=== PATIENT | male | born 1955 | race Caucasian/White ===

== ENCOUNTER 2021-02-04 13:05 | Emergency (ER) | payer MEDICARE, SELFPAY ==
[2021-02-04] VITALS (7 sets, daily range): BP systolic 96–108; BP diastolic 61–72; PULSE 53–61; RESP 15–17; TEMP 36.4–36.6; O2SAT 91–97; BMI 24.4
--- NOTE | 2021-02-04 14:18 | RAD_ITS ---
STUDY: X-RAY CHEST REASON FOR EXAM: Male, 65 years old. cough, + COVID . Cough and body aches. TECHNIQUE: Single AP portable view of the chest. COMPARISON: None. FINDINGS: EKG electrodes are seen. Patchy bilateral pulmonary infiltrates worse in the right upper lobe with a preferential peripheral distribution in keeping with Covid pneumonitis. There is no demonstrated pleural abnormality. Normal size heart. Normal mediastinum and rosana. Normal visualized pulmonary arteries. Normal visualized aortic arch and descending thoracic aorta. There are diffuse degenerative changes of the visualized thoracic spine. Normal visualized ribs, clavicles, and shoulders. There is no demonstrated abnormality of the visualized soft tissue structures of the upper abdomen. RAD/Chest 1 View (Portable) IMPRESSION: Bilateral pulmonary infiltrates worse in the right side with a peripheral distribution suggestive of Covid pneumonitis. Electronically Signed: Dexter Mayer MD at 15:25 EDT , Service support ,
--- NOTE | 2021-02-04 14:27 | EDS_ITS ---
HPI History of Present Illness Chief Complaint: General Illness Informant: patient Narrative Narrative: Patient is a 65-year-old male with history of hypertension, hyperlipidemia and hypothyroid, diagnosed with Covid and received a monoclonal antibody infusion on Wednesday, 2 days ago, at [facility]. He is presenting with continued body aches and not feeling well. He has had diarrhea but no blood in it. He has had nausea and vomiting but none today. Does continue to have a cough but denies feeling short of breath. He has not had any fever. Not take anything at home for his symptoms besides his regularly prescribed medications. No oxygen at home. Notes his is also having similar symptoms. [facility] Medical History (Updated 02/04/21 @ 16:[address] Jyotsna Figueroa DO) Aneurysm Former smoker Hypertension Myocardial infarct Home Medications dexamethasone [Decadron] 6 mg PO DAILY #6 tab 02/04/21 [Rx Last Taken Unknown] Allergy/AdvReac Type Severity Reaction Status Date / Time No Known Allergies Allergy Verified 02/04/21 13:09 Social History Smoking Status: Former smoker ROS ROS ED Constitutional Constitutional ED: Reports chills; Denies fever(s) Eyes Eyes: Denies change in vision ENT ENT ED: Reports other Details: Nasal congestion ; Denies ear pain or rhinorrhea Cardiovascular Cardiovascular: Denies chest pain or palpitations Respiratory/Chest Respiratory/Chest: Reports cough; Denies dyspnea or dyspnea on exertion Gastrointestinal Gastrointestinal: Reports diarrhea, nausea and vomiting; Denies abdominal pain Genitourinary Genitourinary ED: Denies dysuria or hematuria Musculoskeletal Musculoskeletal: Reports myalgias; Denies neck pain Integumentary Denies rash Neurologic Neurologic: Reports headache(s); Denies weakness Psychiatric Psychiatric: Denies anxiety or depression EXAM Physical Exam Const Vital Signs: 02/04/21 13:05 02/04/21 14:40 02/04/21 16:00 Temperature 97.5 F L 97.6 F L 97.9 F Temperature Source Temporal Oral Temporal Pulse Rate 60 61 61 Respiratory Rate 16 16 15 Respiratory Pattern Normal Blood Pressure 96/67 104/72 108/72 Blood Pressure Mean 76 82 84 Pulse Ox 94 96 97 Oxygen Delivery Method Room Air Room Air Nasal Cannula Oxygen Flow Rate (L/min) 2 02/04/21 16:58 02/04/21 17:20 Temperature Temperature Source Pulse Rate 60 Respiratory Rate 17 Respiratory Pattern Blood Pressure 107/61 Blood Pressure Mean Pulse Ox 96 96 Oxygen Delivery Method Nasal Cannula Oxygen Flow Rate (L/min) 2 Positive well nourished and well developed General Appearance ED: well developed HEENT Reports moist mucous membranes Negative for tenderness Eyes Negative for PERRL or EOMs intact bilaterally Neck no lymphadenopathy, No supple and no JVD Chest Wall inspection of chest normal Resp normal respiratory effort Effort and Inspection: Negative for retractions Auscultation: rhonchi throughout and diminished lung sounds Cardio regular rate, regular rhythm and no murmurs GI normal to inspection, nondistended, normoactive bowel sounds, non-tender, non- distended, hepatosplenomegaly and no masses Inspection: abdominal distention Auscultation: normoactive bowel sounds, hyperactive bowel sounds and hypoactive bowel sounds Palpation: soft, tender, guarding, splenomegaly, mass and rebound tenderness present Rectal Exam: normal sphincter tone, prostate normal, heme negative stool, heme positive stool, tenderness and other Back/Spine no CVA tenderness Extremity normal to inspection General Extremety ED: Negative for edema or tenderness General Extremity: Negative for edema Neuro oriented x3 Sensorium / Orientation: alert Motor Exam: Negative for general weakness Psych mental status grossly normal Skin no rashes or lesions noted and no wounds MDM MDM MDM Narrative Medical decision making narrative: Patient evaluated for continued cough and increased fatigue associated with Covid diagnosis. Patient is hypoxic with a mbulation on 85% and requiring supplemental oxygen. Chest x-ray is consistent with Covid pneumonia and he does not have a leukocytosis. He is given 500 cc bolus as he does have a mild hyponatremia. He is given Toradol and does have improvement of his symptoms. Patient is a candidate for outpatient home oxygen. This is set up. Patient is comfortable with this. He is started on Decadron given first dose in the emergency room. Patient counseled return precautions. Counseled on use of a pulse oximeter. Of respiratory counseled patient on how to use home oxygen. Patient is agreeable with this plan of care. Lab Data Attestation: I reviewed the patient's lab results. Labs: Laboratory Results - last 24 hr 02/04/21 02/04/21 14:38 14:38 WBC 5.3 RBC 5.11 Hgb 15.2 Hct 44.1 MCV 86.3 MCH 29.7 MCHC 34.5 RDW Std Deviation 41.5 RDW Coeff of Rey 13.1 Plt Count 139 L MPV 10.2 Immature Gran % (Auto) 0.600 Neut % (Auto) 65.3 Lymph % (Auto) 26.3 [place] % (Auto) 7.0 Eos % (Auto) 0.6 Baso % (Auto) 0.2 Absolute Neuts (auto) 3.5 Absolute Lymphs (auto) 1.39 Nucleated RBC % 0 Sodium 130 L Potassium 3.7 Chloride 95 L Carbon Dioxide 29.0 Anion Gap 6 BUN 14 Creatinine 0.79 Estim Creat Clear Calc 105.35 Est GFR (MDRD) Af Amer 126 Est GFR (MDRD) Non-Af 104 BUN/Creatinine Ratio 17.7 Glucose 108 H Calcium 8.7 Total Bilirubin 0.90 AST 75 H ALT 47 Alkaline Phosphatase 49 Total Protein 6.6 Albumin 3.3 Globulin 3.3 Albumin/Globulin Ratio 1.0 Radiography Chest X-Ray - ED: 1 View, Read by ED Physician, Read by Radiologist and - (Multifocal infiltrate consistent with Covid pneumonitis) Diagnostic Testing: Radiology Impression Chest X-Ray 02/04/21 14:18 IMPRESSION: Bilateral pulmonary infiltrates worse in the right side with a peripheral distribution suggestive of Covid pneumonitis. Electronically Signed: eDxter Mayer MD at 15:25 EDT , Service support , Discharge Plan Triage Chief Complaint: General Illness ED Provider: Jyotsna Figueroa Dx/Rx/DC Orders Clinical Impression: Pneumonia due to COVID-19 virus, Acute respiratory failure with hypoxia Instructions: Coronavirus Disease 2019 (COVID-19): Overview Prescriptions: New dexamethasone [Decadron] 6 mg tablet 6 mg PO DAILY Qty: 6 RF: 0 Primary Care Provider: Kip Claros Referrals: Kip Claros MD [Primary Care Provider] - Activity Restrictions/Additional Instructions: Alternate Tylenol and ibuprofen for myalgias and fever. Return the emergency room if your oxygen is going below 90% despite being on home oxygen. If you require more than 4 L of oxygen please return to the emergency room. Disposition Disposition: Home, Self Care Discharge Date/Time: 02/04/21 18:00
[2021-02-04] MEDS: Ketorolac 15 MG/ML Vial IV (14:38)
[2021-02-04 14:50] LABS: Absolute Lymphocyte Count 1.39 X10^3/uL (0.83-4.51); Absolute Neutrophil Count 3.5 X10^3/uL (2.0-7.7); Basophil# 0.01 X10^3/uL; Basophil% 0.2 % (0-1); Eosinophil# 0.03 X10^3/uL; Eosinophils% 0.6 % (0-5); Hematocrit 44.1 % (40-54); Hemoglobin 15.2 g/dL (13.0-16.5); Lymphocyte # 1.39 X10^3/ul (0.83-4.51); Lymphocyte % 26.3 % (19-41); Mean Corp Hgb Conc 34.5 g/dL (32-36); Mean Corpuscular Hgb 29.7 pg (27.0-32.0); Mean Corpuscular Volume 86.3 fL (80-94); Mean Platelet Vol. 10.2 fl (6.2-12.0); Monocyte# 0.37 X10^3/uL; NRBC Flagged by Analyzer 0 % (0-5); Neutrophil # 3.45 X10^3/uL (2.7-7.7); Neutrophil % 65.3 % (47-70); Platelet Count 139 K/mm3 (150-450); RBC Distribution Width CV 13.1 % (11.6-14.6); RBC Distribution Width SD 41.5 fl (35.1-43.9); Red Blood Count 5.11 M/mm3 (4.6-6.2); White Blood Count 5.3 K/mm3 (4.4-11.0)
[2021-02-04 15:04] LABS: AST(SGOT) 75 U/L (15-37); Alanine Aminotransfer ALT/SGPT 47 U/L (16-61); Albumin, Serum 3.3 g/dL (3.2-5.0); Alkaline Phosphatase 49 U/L (45-117); Anion Gap 6 (5-15); BUN 14 mg/dL (7-18); BUN/Creat Ratio 17.7 RATIO (10-20); Calcium,Total 8.7 mg/dL (8.5-10.1); Chloride 95 mmol/L (98-107); Creatinine, Serum 0.79 mg/dL (0.70-1.30); EST Glomerular Filtration Rate 104 mL/min (>60); Est Glom Filt Rate - Afr Amer 126 mL/min (>60); Estimated Creatinine Clearance 105.35 ml/min; Globulin 3.3 g/dL (2.2-4.2); Glucose 108 mg/dL (74-106); Potassium 3.7 mmol/L (3.5-5.1); Protein, Total 6.6 g/dL (6.4-8.2); Sodium Level 130 mmol/L (136-145)
[2021-02-04] MEDS: dexAMETHasone 4 MG Tablet 6 MG PO (17:19)
--- NOTE | 2021-02-04 17:20 | CM.ED ---
SOCIAL WORK Referral Source: Dr. Figueroa Reason for Consult: COVID-19 positive requiring home O2 Patient requires home O2 for home going. Patient has COVID-19 positive test. Nursing spoke with patient and [place] [facility] [place] A&Ox3. Patient lives home with and is no longer a smoker. Patient does not have pulse ox at home. One has been provided. [place] [facility] [place]. Nurse to notify RT to review with patient. Notified Case Management for follow up. Danae Quintero, NEONATAL DOCTOR, SAMPLE MAKER
--- NOTE | 2021-02-05 12:19 | CASEMGMT ---
ARUN CEDILLO Follow-up: This RN CM phoned pt in follow-up to discharge from the ED with home O2. Pt states he is feeling better and that he has been wearing his O2 at 2l/min. Pt reports his PO to be 90% but did state it had gone down to 87% and returned to 90%. Pt states he did go down to feed and water his coon dogs and cats without wearing the O2. Encouraged pt to wear his O2 while he is walking around. Pt states he has found his PO increases when he walks around and does not decrease. Reinforced need to continue to wear his O2. Pt states he drove to the pharmacy this AM to get his decadron and has started to take it as prescribed. States he is otherwise staying home. States his daughter is able to assist when needed. Reinforced need to remain quarantined. Pt state he did use the drive thru at the pharmacy. Pt denies any questions or concerns at this time. Elin Murphy RN CM
--- NOTE | 2021-02-06 17:13 | CASEMGMT ---
ARUN SHIN COVID Home O2 follow-up: This ARUN SHIN contacted pt via phone. Pt states he continues to do alright. States he has been wearing his O2 continuously and even when he goes out to take care of his dogs. States the portable tanks have run out of O2 but he has contacted the supplier and they are bringing him more portable tanks. Pt reports his PO to be 95%. Pt states his daughter made him a follow-up appoinment with his PCP. Pt denies any further concerns or questions at this time. Elin Murphy RN CM
--- NOTE | 2021-02-10 12:48 | CASEMGMT ---
ARUN SHIN ED COVID Home O2 Follow-up: This RN ALEIDA phoned pt in follow-up to his home O2. Pt states he is not using the O2 and states they can come get all of this, I don't need it anymore. Pt reports his PO to be 95% on RA both during the day and at night. Pt states he does not have a follow-up appointment with his PCP for another 3 weeks as his PCP is on vacation and he does not want to see anyone else. Pt states he has spoken with Puzl. Pt denies any other concerns at this time. Elin Murphy RN CM
== END 2021-02-04 18:00 | disposition home or self-care (01) ==
PROVIDERS: Emergency Provider Emergency Medicine; PCP Family Medicine
DX: U07.1 COVID-19 (principal); J12.82 Pneumonia due to coronavirus disease 2019; J96.01 Acute respiratory failure with hypoxia; I10 Essential (primary) hypertension; I25.2 Old myocardial infarction; Z87.891 Personal history of nicotine dependence; E03.9 Hypothyroidism, unspecified; E78.5 Hyperlipidemia, unspecified; Z79.52 Long term (current) use of systemic steroids
CPT/HCPCS: 71045; 80053; 85025; 99285; J7040; A4216